=== PATIENT | male | born 1945 | race Caucasian/White ===

== ENCOUNTER 2016-12-04 15:54 | Outpatient (CLI) | payer OTHER ==
[2015-01-01 15:33] VITALS: BP 131/69
[2016-12-04 16:08] LABS: EOSINOPHILS % 7.5 % (0.0-6.8); MEAN CORPUSCULAR HEMOGLOBIN 32.7 pg (28.0-34.0); MEAN CORPUSCULAR VOLUME 95.4 fl (80.0-100.0); NEUTROPHILS # 2.8 # k/uL (1.4-7.7)
[2016-12-04 16:24] LABS: eGFR (African) > 60; eGFR (Non-African) > 60
== END 2016-12-04 15:55 ==
LOC: LAB 15:54
PROVIDERS: ATTEND Family Medicine
DX: R60.0 Localized edema (principal); I10 Essential (primary) hypertension
CPT/HCPCS: 36415; 80053; 83880; 85025

== ENCOUNTER 2017-02-06 12:11 | Outpatient (CLI) | payer OTHER ==
[2015-01-01 15:33] VITALS: BP 131/69
== END 2017-02-06 12:12 ==
LOC: CARD 12:11
PROVIDERS: ATTEND Internal Medicine Cardiovascular Disease
DX: R60.9 Edema, unspecified (principal); I10 Essential (primary) hypertension; E78.5 Hyperlipidemia, unspecified; Z72.0 Tobacco use; G47.30 Sleep apnea, unspecified
CPT/HCPCS: G0463

== ENCOUNTER 2017-02-07 10:28 | Outpatient (CLI) | payer OTHER ==
[2015-01-01 15:33] VITALS: BP 131/69
[2017-02-07 10:50] LABS: APPEARANCE,URINE Clear (CLEAR); COLOR,URINE Yellow (YELLOW); OCCULT BLOOD,URINE Negative (NEGATIVE); PH URINE 8.5 (5.0 - 8.0); UROBILINOGEN URINE 0.2 Eu (0.2-1.0)
== END 2017-02-07 10:30 ==
LOC: LAB 10:28
PROVIDERS: ATTEND Internal Medicine Cardiovascular Disease
DX: R60.9 Edema, unspecified (principal)
CPT/HCPCS: 36415; 81002

== ENCOUNTER 2017-03-28 11:19 | Emergency (ER) | payer OTHER ==
[2017-03-28 11:42] VITALS: BP 105/62
--- NOTE | 2017-03-28 11:49 | ED Physician Documentation ---
Low Back Pain - HISTORIAN Historian: patient - HPI Stated Complaint: thrown by a horse Chief Complaint: Low Back Pain/ Injury Additional Information: was thrown off a horse onto frozen ground 3 days ago. has had back fusion surgery x 3 40 years ago. worried that he might have broke something. pain is bilateral lumbar. no spinous process palp pain. no other injury History: history of chronic pain:, back pain Onset: days ago Duration: continues in ED Recent Injury: Yes Context: fall Where: home Severity: mild Quality: sharp, similar- prior back pain Associated Symptoms: denies: fever, chills, problems urinating, difficulty walking, weakness Worsened By:: movement to RT flexion, movement to LT flexion Relieved By: nothing Further Comments: no - ROS CONST: no problems CVS/RESP: none EYES/ENT: none MS/SKIN/LYMPH: none Neuro/Psych: none GI/: denies: abdominal pain - PAST HX Past History: back injury, back pain, intervert. disc disease Surgeries/Procedures: back surgery, other (shoulder) Allergies/Adverse Reactions: Allergies Allergy/AdvReac Type Severity Reaction Status Date / Time Sulfa (Sulfonamide Allergy Unverified 03/28/17 11:53 Antibiotics) venlafaxine Allergy Verified 03/28/17 11:53 - SOCIAL HX Smoking History: cigarettes Alcohol Use: none Drug Use: none - FAMILY HX Family History: other (panc CA) - VITAL SIGNS Vital Signs: Vital Signs Temp Pulse Resp BP Pulse Ox 98.7 F 66 20 105/62 98 03/28/17 11:20 03/28/17 11:20 03/28/17 11:20 03/28/17 11:20 03/28/17 11:20 - REVIEWED ASSESSMENTS Nursing Assessment Reviewed: Yes Vitals Reviewed: Yes Progress - Progress Progress: spent time explaining the CT scan results ED Results Lab/Radiology - Radiology Radiology Impressions: compression deformity T12 unknow chronicity arthritic changes foraminal narrowing - Orders Orders: ED Orders Category Date Time Status CT LUMBAR SPINE WITHOUT CONTRAST [CT L-SPINE W/O Exams 03/28/17 Taken CONTRAST] Stat methylPREDNISolone SOD SUCC [Solu-MEDROL] Med 03/28/17 13:14 Once 125 mg IM NOW ONE Low Back Pain/Injury - Physical Exam General Appearance: no acute distress, alert EENT: ENT inspection normal Neck: non-tender Resp/CVS: chest non-tender Abdomen: non-tender Back: No: non-tender (bilat peraspinal tenderness), vertebral point-tendernes Neuro/Psych: oriented x3, motor nml, sensation nml Discharge Clincal Impression: Compression fracture of body of thoracic vertebra, Peripheral neuropathic pain , SPINAL CANAL NARROWING, DDD (degenerative disc disease), thoracolumbar Lumbar contusion Qualifiers: Encounter type: initial encounter Qualified Code(s): S30.0XXA - Contusion of lower back and pelvis, initial encounter Fall from horse Qualifiers: Encounter type: initial encounter Qualified Code(s): V80.010A - Animal-rider injured by fall from or being thrown from horse in noncollision accident, initial encounter Referrals: Rolf Chavez MD [Primary Care Provider] - 2 Days Condition: Stable Disposition: 01 HOME, SELF-CARE Decision to Admit: NO Date of Decison to Admit: 03/28/17 Decision Time: 13:18
[2017-03-28] MEDS ORDERED: methylPREDNISolone SOD SUCC 125 MG/2 ML VIAL IM ONE (13:14)
--- NOTE | 2017-03-28 13:25 | Diagnostic Imaging Report ---
ALICJA BENOIT [facility] [address] [facility] [address] [place], [place]. [address] Report Submission Date: Mar 28, 2017 12:57:21 PM ENTRY LEVEL ACCOUNTING CLERK Patient Study Name: TANYA LOERA Date: Mar 28, 2017 12:07:49 PM ENTRY LEVEL ACCOUNTING CLERK Modality Type: CT\SR Gender: M Description: CT L-SPINE W/O CONTRAS : 45 Institution: [facility] Physician: ALICJA BENOIT Examination: CT lumbar spine History: Fall Comparison exams: None provided Technique: CT lumbar spine axial imaging with sagittal and coronal reconstruction Findings: Sagittal reconstruction demonstrates anterior narrowing of T12 by approximately 40 - 50%. Lumbar vertebral bodies demonstrate normal height and alignment. No anterior compression deformity. Anterior, posterior, and lateral osteophytes. Disc space narrowing involving L3/L4 through L5/S1. T11/12 and T12/ L1 disc space narrowing. Coronal reconstruction does not demonstrate locked or perched facets. Osteopenia. Scattered atherosclerotic disease involving the abdominal aorta. Axial imaging obtained from T12 through the sacrum Lamina and pedicles are intact. Multilevel facet degenerative changes. Lateral facet fusion. Scattered central canal and neural foraminal narrowing. No prevertebral soft tissue abnormality. Impression: T12 anterior compression deformity - chronicity indeterminate without older exams. Correlate with patient symptoms. Acuity can be assessed with MRI - evaluating for bone marrow edema. No evidence for lumbar vertebral body compression fracture. Osteopenia. Multilevel degenerative changes. Electronically signed on Mar 28, 2017 12:57:21 PM ENTRY LEVEL ACCOUNTING CLERK by: Charanjit HANCOCK
== END 2017-03-28 13:30 | disposition home or self-care (01) ==
LOC: ED 11:19
DX: S22.009A Unspecified fracture of unspecified thoracic vertebra, initial encounter for closed fracture (principal); S30.0XXA Contusion of lower back and pelvis, initial encounter; V80.010A Animal-rider injured by fall from or being thrown from horse in noncollision accident, initial encounter
CPT/HCPCS: 72131; 96372; 99283; J2930

== ENCOUNTER 2017-04-19 10:47 | Outpatient (CLI) | payer OTHER | END 2017-04-19 10:50 | LOC: LABRHC 10:47 | PROVIDERS: ATTEND Family Medicine | DX: R30.0 Dysuria (principal) | CPT/HCPCS: 87086 ==

== ENCOUNTER 2019-02-17 14:20 | Outpatient (CLI) | payer OTHER ==
[2019-02-17 15:42] LABS: TSH 1.82 mIU/l (0.465-4.685)
== END 2019-02-17 14:25 ==
LOC: LAB 14:20
PROVIDERS: ATTEND Family Medicine
DX: N40.1 Benign prostatic hyperplasia with lower urinary tract symptoms (principal); R41.3 Other amnesia
CPT/HCPCS: 36415; 84153; 84439; 84443; 84481